=== PATIENT | male | born 2000 | race Caucasian/White ===

== ENCOUNTER 2022-03-01 23:20 | Emergency (ER) | payer OTHER ==
[~2022-03-01] VITALS: Ht 182.9 cm; Wt 81.6 kg
[2022-03-01] MEDS ORDERED: NACL 0.9% 1,000 ML IV ONE (23:30)
[2022-03-01 23:32] VITALS: BP_SYST 138
--- NOTE | 2022-03-01 23:33 | NUR ---
Patient [facility] for ETOH. Patient a/ox3 but lethargic. Patient vomited in ambulance before arrival. Patient lying in bed resting comfortably, no s/s of distress. Patients skin is intact, patient self turns. Patient stated pain is 0/10. Patient chest rise and fall symmetrical. Bed in low and locked position, bed rails up. Addendum: 03/02/22 at 0329 by [email or web address] Patient [facility] for ETOH. Patient a/ox2, lethargic. Patient vomited in ambulance before arrival. Patient lying in bed resting comfortably, no s/s of distress. Patients skin is intact, patient self turns. Patient stated pain is 0/10. Patient chest rise and fall symmetrical. Bed in low and locked position, bed rails up.
[2022-03-01] MEDS ORDERED: ONDANSETRON HCL 4 MG/2 ML VIAL IVP ONE (23:45)
[2022-03-02 00:09] LABS: CALCIUM 9.2 mg/dL (8.4-11.0); CREATININE 0.93 mg/dL (0.55-1.30)
[2022-03-02 00:15] LABS: ALBUMIN 4.5 g/dL (3.4-4.8); CORRECTED WHITE BLOOD COUNT 9.3 K/uL (4.5-11.0); HEMATOCRIT 48.2 % (36-54); HEMOGLOBIN 16.5 g/dL (14.0-18.0); MEAN CORPUSCULAR HEMOGLOBIN 30 pg (27-31); MEAN CORPUSCULAR HGB CONC 34 % (32-36); MEAN CORPUSCULAR VOLUME 86 fL (79.0-98.0); RED BLOOD CELL COUNT(AUTO) 5.58 MIL/uL (4.2-6.2); RED CELL DISTRIBUTION WIDTH 12.4 % (9.0-15.0); TOTAL BILIRUBIN 1.7 mg/dL (0.0-1.0); WHITE BLOOD COUNT (AUTO) 9.3 K/uL (4.5-11.0)
--- NOTE | 2022-03-02 00:15 | NUR ---
Dr. Gutierrez verbally informed of abnormal chemistry lab results. Dr. Gutierrez verbalized understanding, no new orders.
[2022-03-02 00:16] LABS: BASOPHILS % (AUTO) 0.7 % (0.0-2.0); EOSINOPHILS # (AUTO) 0.1 K/uL (0.0-0.4); LYMPHOCYTES # (AUTO) 2.5 K/uL (1.0-5.5); LYMPHOCYTES % (AUTO) 26.5 % (20.5-51.5); MONOCYTES # (AUTO) 0.5 K/uL (0.0-1.0); MONOCYTES % (AUTO) 5.7 % (1.7-9.3); NEUTROPHILS # (AUTO) 6.2 K/uL (1.8-7.7); NEUTROPHILS % (AUTO) 66.1 % (40.0-70.0); PLATELET COUNT (AUTO) 263 K/uL (130-430)
[2022-03-02 00:53] LABS: BARBITURATE, URINE NEGATIVE (NEG <=200); BENZODIAZEPINE, URINE NEGATIVE (NEG <=150); CANNABINOID, URINE NEGATIVE (NEG <=50); COCAINE, URINE NEGATIVE (NEG <=150); METHAMPHETAMINES SCREEN,URINE NEGATIVE (NEG <=500); OPIATE, URINE NEGATIVE (NEG <=100); PHENCYCLIDINE SCREEN,URINE NEGATIVE (NEG <=25); UR TRICYCLIC ANTIDEPRESSANTS NEGATIVE (NEG <=300); URINE AMPHETAMINE NEGATIVE (NEG <=500); URINE METHADONE NEGATIVE (NEG <=200); URINE OXYCODONE SCREEN NEGATIVE (NEG <=100); URINE PROPOXYPHENE SCREEN NEGATIVE (NEG <=300)
--- NOTE | 2022-03-02 01:20 | NUR ---
Patient is A/Ox2, lying in bed resting comfortably, no s/s of distress. Patients skin is intact, patient self turns. Patient stated pain is 0/10. Patient chest rise and fall symmetrical. Bed in low and locked position, bed rails up.
--- NOTE | 2022-03-02 03:34 | NUR ---
Hiwot mujica in ED - 03/02/22 at [email or web address] Gutierrez verbally informed of abnormal chemistry lab results. Dr. Gutierrez verbalized understanding, no new orders.
--- NOTE | 2022-03-02 04:12 | NUR ---
Patient is A/Ox4, lethargic, lying in bed resting comfortably, no s/s of distress. Patients skin is intact, patient self turns. Patient stated pain is 0/10. Patient chest rise and fall symmetrical. Bed in low and locked position, bed rails up.
--- NOTE | 2022-03-02 07:18 | NUR ---
Patient given written and verbal discharge instructions and verbalizes understanding. ER MD Dr. Estrada discussed with patient the results and treatment provided. Patient is a/Ox4, alert, and in stable condition. ID arm band removed. No active bleeding to woundcare site. Patient educated on pain management and to follow up with PMD. Pain Scale 0/10. Opportunity for questions provided and answered. Patient left with all belongings, discharge paperwork, and patient walks with strong gait.
[2022-03-02 07:20] VITALS: BP_SYST 121
== END 2022-03-02 07:20 | disposition home or self-care (01) ==
LOC: SED 23:20
DX: F10.129 Alcohol abuse with intoxication, unspecified (principal)
CPT/HCPCS: 36415; 80053; 80307; 83690; 85025; 96361; 96374; 99285; G0482; J2405; J7030